=== PATIENT | female | born 1965 | race Caucasian/White ===

== ENCOUNTER 2018-08-29 13:56 | Observation (INO) | payer BC, OTHER ==
[2018-08-29] MEDS ORDERED: SODIUM CHLORIDE 0.9% 1,000 ML IV STA (15:06)
[2018-08-29] MEDS ORDERED: SODIUM CHLORIDE 0.9% 500 ML 500 ML IV STA (15:06)
--- NOTE | 2018-08-29 15:08 | ED ---
Female Urogenital HPI - General Source: patient, RN notes reviewed Mode of arrival: ambulatory Limitations: no limitations - History of Present Illness Last Menstrual Period: 08/09/18 <Eduardo Ramirez - Last Filed: 08/29/18 17:13> <Isaak Rome - Last Filed: 08/29/18 17:25> - General Chief complaint: Urogenital Stated complaint: Urogenital Time Seen by Provider: 08/29/18 14:33 - History of Present Illness Initial comments: 52-year-old female sent emergency Department chief complaint urinary frequency dysuria and flank pain. Patient was seen at [facility] for possible urinary tract infection which they told her that the urinalysis was negative and sent here for further evaluation. Patient was was treated for UTI 1 month ago. Patient states she recently started having symptoms again. Patient has no prior abdominal surgeries. Denies any known fever but states that she felt hot and cold. No nausea vomiting diarrhea constipation this time. Patient states that nothing makes the pain feel better or worse. Denies chest pain or shortness breath (Eduardo Ramirez) - Related Data Home Medications Medication Instructions Recorded Confirmed Naproxen Sodium [Aleve] 220 mg PO DAILY 09/08/15 09/08/15 Previous Rx's Medication Instructions Recorded Ibuprofen [Motrin] 600 mg PO Q6HR PRN #20 tab 09/08/15 Allergies Allergy/AdvReac Type Severity Reaction Status Date / Time No Known Allergies Allergy Verified 08/29/18 14:17 Review of Systems ROS Other: All systems not noted in ROS Statement are negative. <Eduardo Ramirez - Last Filed: 08/29/18 17:13> ROS Other: All systems not noted in ROS Statement are negative. <Isaak Rome - Last Filed: 08/29/18 17:25> ROS Statement: Those systems with pertinent positive or pertinent negative responses have been documented in the HPI. Past Medical History Past Medical History: No Reported History History of Any Multi-Drug Resistant Organisms: None Reported Past Surgical History: Orthopedic Surgery Past Psychological History: No Psychological Hx Reported Smoking Status: Never smoker Past Alcohol Use History: Rare Past Drug Use History: None Reported <Eduardo Ramirez - Last Filed: 08/29/18 17:13> General Exam Limitations: no limitations General appearance: alert, in no apparent distress Head exam: Present: atraumatic, normocephalic, normal inspection Respiratory exam: Present: normal lung sounds bilaterally. Absent: respiratory distress, wheezes, rales, rhonchi, stridor Cardiovascular Exam: Present: regular rate, normal rhythm, normal heart sounds. Absent: systolic murmur, diastolic murmur, rubs, gallop, clicks GI/Abdominal exam: Present: soft, tenderness (Mild left upper and suprapubic), normal bowel sounds. Absent: distended, guarding, rebound, rigid Back exam: Present: CVA tenderness (R), CVA tenderness (L) Neurological exam: Present: alert Skin exam: Present: warm, dry, intact, normal color. Absent: rash <Eduardo Ramirez - Last Filed: 08/29/18 17:13> Course Vital Signs 08/29/18 08/29/18 14:14 15:58 Temperature 98.5 F Pulse Rate 87 74 Respiratory 18 16 Rate Blood Pressure 116/88 118/52 O2 Sat by Pulse 88 L 100 Oximetry Medical Decision Making - Lab Data Result diagrams: 08/29/18 15:42 08/29/18 15:42 <Eduardo Ramirez - Last Filed: 08/29/18 17:13> - Lab Data Result diagrams: 08/29/18 15:42 08/29/18 15:42 <Isaak Rome - Last Filed: 08/29/18 17:25> - Medical Decision Making 52-year-old female presented emergency from for abdominal pain. CT shows diverticulitis with phlegmon possible early abscess. Patient does have a hemoglobin 8.9 which is slightly low but denies any bleeding. Patient also has evidence urinary tract infection. Patient will be admitted for IV antibiotics, surgical evaluation (Eduardo Ramirez) Case discussed with practitioner Eduardo. Chart and reports reviewed. Case was also discussed in detail with Dr. Godinez, who will admit covering for hospital call. He recommends continuing antibiotics and nothing by mouth. (Isaak Rome) - Lab Data Lab Results 08/29/18 08/29/18 08/29/18 Range/Units 15:42 15:42 15:42 WBC 8.2 (3.8-10.6) k/uL RBC 4.01 (3.80-5.40) m/uL Hgb 8.9 L (11.4-16.0) gm/dL Hct 29.3 L (34.0-46.0) % MCV 73.0 L (80.0-100.0) fL MCH 22.1 L (25.0-35.0) pg MCHC 30.3 L (31.0-37.0) g/dL RDW 15.1 (11.5-15.5) % Plt Count 349 (150-450) k/uL Neutrophils % 77 % Lymphocytes % 13 % Monocytes % 7 % Eosinophils % 2 % Basophils % 0 % Neutrophils # 6.3 (1.3-7.7) k/uL Lymphocytes # 1.1 (1.0-4.8) k/uL Monocytes # 0.5 (0-1.0) k/uL Eosinophils # 0.1 (0-0.7) k/uL Basophils # 0.0 (0-0.2) k/uL Hypochromasia Marked Microcytosis Slight Sodium 139 (137-145) mmol/L Potassium 4.1 (3.5-5.1) mmol/L Chloride 105 (98-107) mmol/L Carbon Dioxide 28 (22-30) mmol/L Anion Gap 6 mmol/L BUN 9 (7-17) mg/dL Creatinine 0.60 (0.52-1.04) mg/dL Est GFR (CKD-EPI)AfAm >90 (>60 ml/min/1.73 sqM) Est GFR (CKD-EPI)NonAf >90 (>60 ml/min/1.73 sqM) Glucose 102 H (74-99) mg/dL Calcium 8.9 (8.4-10.2) mg/dL Total Bilirubin 0.6 (0.2-1.3) mg/dL AST 17 (14-36) U/L ALT 20 (9-52) U/L Alkaline Phosphatase 79 (38-126) U/L Total Protein 6.9 (6.3-8.2) g/dL Albumin 3.8 (3.5-5.0) g/dL Amylase <30 L (30-110) U/L Lipase 38 (23-300) U/L Urine Color Yellow Urine Appearance Cloudy H (Clear) Urine pH 5.0 (5.0-8.0) Ur Specific [place] 1.024 (1.001-1.035) Urine Protein Trace H (Negative) Urine Glucose (UA) Negative (Negative) Urine Ketones 1+ H (Negative) Urine Blood Negative (Negative) Urine Nitrite Negative (Negative) Urine Bilirubin Negative (Negative) Urine Urobilinogen <2.0 (<2.0) mg/dL Ur Leukocyte Esterase Large H (Negative) Urine RBC 1 (0-5) /hpf Urine WBC 31 H (0-5) /hpf Ur Squamous Epith Cells 12 H (0-4) /hpf Amorphous Sediment Rare H (None) /hpf Hyaline Casts 3 H (0-2) /lpf Urine Mucus Few H (None) /hpf Disposition <Eduardo Ramirez - Last Filed: 08/29/18 17:13> Is patient prescribed a controlled substance at d/c from ED?: No <Isaak Rome - Last Filed: 08/29/18 17:25> Clinical Impression: Diverticulitis, Anemia, UTI (urinary tract infection) Disposition: ADMITTED IP TO THIS HOSP Condition: Fair Referrals: None,Stated [Primary Care Provider] - 1-2 days
[2018-08-29 16:20] LABS: Amorphous Sediment,Urine Rare /hpf; Appearance,Urine Cloudy (Clear); Bilirubin,Urine Negative (Negative); Blood,Urine Negative (Negative); Color,Urine Yellow; Glucose,Urine (UA) Negative (Negative); Hyaline Casts,Urine 3 /lpf (0-2); Ketones,Urine 1+ (Negative); Leukocyte Esterase,Urine Large (Negative); Mucus,Urine Few /hpf; Nitrite,Urine Negative (Negative); Protein,Urine Trace (Negative); RBC,Urine 1 /hpf (0-5); Specific Gravity,Urine 1.024 (1.001-1.035); Squamous Epithelial Cell,Urine 12 /hpf (0-4); Urobilinogen,Urine <2.0 mg/dL (<2.0)
[2018-08-29 16:21] LABS: ALT 20 U/L (9-52); AST 17 U/L (14-36); African American GFR (CKD) >90 (>60 ml/min/1.73 sqM); Albumin 3.8 g/dL (3.5-5.0); Alkaline Phosphatase 79 U/L (38-126); Amylase <30 U/L (30-110); Anion Gap 6 mmol/L; Blood Urea Nitrogen 9 mg/dL (7-17); Calcium 8.9 mg/dL (8.4-10.2); Carbon Dioxide 28 mmol/L (22-30); Chloride 105 mmol/L (98-107); Glucose 102 mg/dL (74-99); Potassium 4.1 mmol/L (3.5-5.1); Sodium 139 mmol/L (137-145); Total Bilirubin 0.6 mg/dL (0.2-1.3); Total Protein 6.9 g/dL (6.3-8.2)
[2018-08-29 16:26] LABS: Basophils % (A) 0 %; Eosinophils # (A) 0.1 k/uL (0-0.7); Eosinophils % (A) 2 %; HCT 29.3 % (34.0-46.0); HGB 8.9 gm/dL (11.4-16.0); Hypochromasia Marked; Lymphocytes # (A) 1.1 k/uL (1.0-4.8); Lymphocytes % (A) 13 %; MCH 22.1 pg (25.0-35.0); MCHC 30.3 g/dL (31.0-37.0); Mean Platelet Volume 6.7; Microcytosis Slight; Monocytes # (A) 0.5 k/uL (0-1.0); Monocytes % (A) 7 %; Neutrophils # (A) 6.3 k/uL (1.3-7.7); Neutrophils % (A) 77 %; Platelet Count 349 k/uL (150-450); RBC 4.01 m/uL (3.80-5.40); RDW 15.1 % (11.5-15.5); WBC 8.2 k/uL (3.8-10.6)
--- NOTE | 2018-08-29 16:51 | CT ---
EXAMINATION TYPE: CT abdomen pelvis w con DATE OF EXAM: 08/29/2018 COMPARISON: INDICATION: Dysuria and abdominal pain. DLP: 1737.3 mGycm, Automated exposure control for dose reduction was used. CONTRAST: 100ml mL of Isovue 300. Study performed without Oral Contrast TECHNIQUE: Axial images were obtained from above the diaphragm to the pubic rami in the axial plane a t 5 mm thick sections. Reconstructed images are reviewed on the computer in the coronal plane. FINDINGS: Limited CT sections are obtained the lung bases. The lung bases are clear. CT ABDOMEN: Liver: Normal Spleen: Normal Pancreas: Normal Adrenal glands: The adrenal glands are normal. Gallbladder: Gallstones are present. Kidneys: No masses are evident. No hydronephrosis is present. No cysts are present. Delayed images were obtained through the kidneys, which remain unremarkable. Aorta: Normal adjacent to the aorta below the renal arteries is a 1.8 cm hypodensity which has a simone lar density to the inferior vena cava. This could be a large lymph node. Vascular structures consider ed less likely. Left renal vein crosses posterior to the aorta. Inferior vena cava: Normal. CT PELVIS: There are inflammatory changes adjacent to the sigmoid colon. The sigmoid colon is diffusely thickene d. There is an area of bulging superiorly which contains some air compatible with acute diverticuliti s. This may be air within diverticulum or loculated within the mesentery at this location. No free ai r is evident within the abdomen. A well-formed abscess is not present at this time. This could be phl egmon formation. Study is performed without oral contrast causing some limitation on the evaluation o f bowel loops. Appendix: Not visualized. No inflammatory changes in the right lower quadrant are evident. Urinary bladder: Unremarkable as visualized. This is partially decompressed causing some limitation. Genitourinary structures: Uterus is normal. Very minimal free fluid may be within the pelvis which ca n be physiologic. The adnexal regions are unremarkable. Osseous structures: No suspicious lytic or sclerotic lesions. Sacroiliac joints have degenerative mendy nge. Facet degenerative change lumbar spine. IMPRESSIONS: 1. Acute diverticulitis sigmoid colon. There is an area of inflammatory change which contains locula rachel air. A well-formed abscess is not present at this time. Phlegmon is likely present. Follow-up is recommended. 2. Enlarged hypodense area adjacent to the mid abdominal aorta suspected to be an enlarged 1.8 cm lym ph node. Follow-up is recommended.
[2018-08-29] MEDS ORDERED: metroNIDAZOLE-NS PMX 500 MG in SALINE 1 100ML.BAG IVPB STA (16:56)
[2018-08-29] MEDS ORDERED: LEVOFLOXACIN 750MG-D5W PMX 750 MG in DEXTROSE/WATER 1 150ML.BAG IVPB STA (16:56)
[2018-08-29] MEDS ORDERED: ONDANSETRON 4 MG/2 ML VIAL IVP PRN (17:14)
[2018-08-29] MEDS ORDERED: HYDROcodone/APAP 5-325MG 1 EACH TAB PO PRN (17:14)
[2018-08-29] MEDS ORDERED: ACETAMINOPHEN TAB 325 MG TAB PO PRN (17:14)
[2018-08-29] MEDS ORDERED: MORPHINE SULFATE 4 MG/ML SYRINGE IV PRN (17:14)
[2018-08-29] MEDS ORDERED: NALOXONE 0.4 MG/ML 1 ML VIAL IV PRN (17:14)
[2018-08-29] MEDS: SODIUM CHLORIDE 0.9% 1,000 ML IV SCH (17:53)
[2018-08-30] MEDS: metroNIDAZOLE-NS PMX 500 MG in SALINE 1 100ML.BAG IVPB SCH ×3 (01:33→18:36)
[2018-08-30] MEDS: SODIUM CHLORIDE 0.9% 1,000 ML IV SCH ×3 (01:34→23:42)
[2018-08-30 01:47] VITALS: BMI 40.3
[2018-08-30] MEDS: PANTOPRAZOLE 40 MG/10 ML VIAL IV SCH (07:19)
[2018-08-30 08:19] LABS: Basophils % (A) 0 %; Eosinophils # (A) 0.1 k/uL (0-0.7); Eosinophils % (A) 2 %; HCT 27.7 % (34.0-46.0); HGB 8.3 gm/dL (11.4-16.0); Hypochromasia Marked; Lymphocytes # (A) 0.7 k/uL (1.0-4.8); Lymphocytes % (A) 13 %; MCH 22.6 pg (25.0-35.0); MCV 75.4 fL (80.0-100.0); Mean Platelet Volume 6.8; Microcytosis Slight; Monocytes # (A) 0.4 k/uL (0-1.0); Monocytes % (A) 7 %; Neutrophils # (A) 4.5 k/uL (1.3-7.7); Neutrophils % (A) 77 %; Platelet Count 294 k/uL (150-450); RBC 3.67 m/uL (3.80-5.40); RDW 14.8 % (11.5-15.5); WBC 5.9 k/uL (3.8-10.6)
--- NOTE | 2018-08-30 11:01 | P.GSHP ---
History of Present Illness H&P Date: 08/30/18 Chief Complaint: Left lower quadrant bowel pain This is a 52-year-old female who is admitted to the hospital with abdominal pain. She is worked up found have acute diverticulitis with phlegmon. Patient states his abdominal pain starting a few days ago. Past Medical History Past Medical History: No Reported History Additional Past Medical History / Comment(s): Skin cancer on neck History of Any Multi-Drug Resistant Organisms: None Reported Past Surgical History: Orthopedic Surgery Additional Past Surgical History / Comment(s): left knee surgery Past Anesthesia/Blood Transfusion Reactions: No Reported Reaction Past Psychological History: No Psychological Hx Reported Smoking Status: Never smoker Past Alcohol Use History: Rare Past Drug Use History: None Reported - Past Family History Mother Family Medical History: Cancer Medications and Allergies Home Medications Medication Instructions Recorded Confirmed Type No Known Home Medications 08/29/18 08/29/18 History Allergies Allergy/AdvReac Type Severity Reaction Status Date / Time gluten Allergy Nausea & Verified 08/29/18 18:18 Vomiting shellfish derived [Shellfish] Allergy Vomiting Verified 08/29/18 18:18 Surgical - Exam Vital Signs Temp Pulse Resp BP Pulse Ox 98.5 F 87 18 116/88 88 L 08/29/18 14:14 08/29/18 14:14 08/29/18 14:14 08/29/18 14:14 08/29/18 14:14 - General well developed, well nourished, no distress - Eyes PERRL - ENT normal pinna - Neck no masses - Respiratory normal expansion - Cardiovascular Rhythm: regular - Abdomen Mild left lower quadrant pain Abdomen: soft Results - Labs 08/30/18 07:30 08/29/18 15:42 Abnormal Lab Results - Last 24 Hours (Table) 08/29/18 08/29/18 08/29/18 Range/Units 15:42 15:42 15:42 RBC (3.80-5.40) m/uL Hgb 8.9 L (11.4-16.0) gm/dL Hct 29.3 L (34.0-46.0) % MCV 73.0 L (80.0-100.0) fL MCH 22.1 L (25.0-35.0) pg MCHC 30.3 L (31.0-37.0) g/dL Lymphocytes # (1.0-4.8) k/uL Glucose 102 H (74-99) mg/dL Amylase <30 L (30-110) U/L Urine Appearance Cloudy H (Clear) Urine Protein Trace H (Negative) Urine Ketones 1+ H (Negative) Ur Leukocyte Esterase Large H (Negative) Urine WBC 31 H (0-5) /hpf Ur Squamous Epith Cells 12 H (0-4) /hpf Amorphous Sediment Rare H (None) /hpf Hyaline Casts 3 H (0-2) /lpf Urine Mucus Few H (None) /hpf 08/30/18 Range/Units 07:30 RBC 3.67 L (3.80-5.40) m/uL Hgb 8.3 L (11.4-16.0) gm/dL Hct 27.7 L (34.0-46.0) % MCV 75.4 L (80.0-100.0) fL MCH 22.6 L (25.0-35.0) pg MCHC 30.0 L (31.0-37.0) g/dL Lymphocytes # 0.7 L (1.0-4.8) k/uL Glucose (74-99) mg/dL Amylase (30-110) U/L Urine Appearance (Clear) Urine Protein (Negative) Urine Ketones (Negative) Ur Leukocyte Esterase (Negative) Urine WBC (0-5) /hpf Ur Squamous Epith Cells (0-4) /hpf Amorphous Sediment (None) /hpf Hyaline Casts (0-2) /lpf Urine Mucus (None) /hpf Microbiology - Last 24 Hours (Table) 08/29/18 15:42 Urine Culture - Preliminary Urine,Voided Diabetes panel 08/29/18 Range/Units 15:42 Sodium 139 (137-145) mmol/L Potassium 4.1 (3.5-5.1) mmol/L Chloride 105 (98-107) mmol/L Carbon Dioxide 28 (22-30) mmol/L BUN 9 (7-17) mg/dL Creatinine 0.60 (0.52-1.04) mg/dL Glucose 102 H (74-99) mg/dL Calcium 8.9 (8.4-10.2) mg/dL AST 17 (14-36) U/L ALT 20 (9-52) U/L Alkaline Phosphatase 79 (38-126) U/L Total Protein 6.9 (6.3-8.2) g/dL Albumin 3.8 (3.5-5.0) g/dL Calcium panel 08/29/18 Range/Units 15:42 Calcium 8.9 (8.4-10.2) mg/dL Albumin 3.8 (3.5-5.0) g/dL Pituitary panel 08/29/18 Range/Units 15:42 Sodium 139 (137-145) mmol/L Potassium 4.1 (3.5-5.1) mmol/L Chloride 105 (98-107) mmol/L Carbon Dioxide 28 (22-30) mmol/L BUN 9 (7-17) mg/dL Creatinine 0.60 (0.52-1.04) mg/dL Glucose 102 H (74-99) mg/dL Calcium 8.9 (8.4-10.2) mg/dL Adrenal panel 08/29/18 Range/Units 15:42 Sodium 139 (137-145) mmol/L Potassium 4.1 (3.5-5.1) mmol/L Chloride 105 (98-107) mmol/L Carbon Dioxide 28 (22-30) mmol/L BUN 9 (7-17) mg/dL Creatinine 0.60 (0.52-1.04) mg/dL Glucose 102 H (74-99) mg/dL Calcium 8.9 (8.4-10.2) mg/dL Total Bilirubin 0.6 (0.2-1.3) mg/dL AST 17 (14-36) U/L ALT 20 (9-52) U/L Alkaline Phosphatase 79 (38-126) U/L Total Protein 6.9 (6.3-8.2) g/dL Albumin 3.8 (3.5-5.0) g/dL Assessment and Plan Assessment: Acute diverticula is. Patient will continue IV antibiotics and have clear liquid diet.
[2018-08-30] MEDS: LEVOFLOXACIN 750MG-D5W PMX 750 MG in DEXTROSE/WATER 1 150ML.BAG IVPB SCH (17:15)
[2018-08-30 21:26] LABS: Basophils % (A) 1 %; Eosinophils # (A) 0.2 k/uL (0-0.7); Eosinophils % (A) 3 %; HCT 27.1 % (34.0-46.0); HGB 8.3 gm/dL (11.4-16.0); Hypochromasia Marked; Lymphocytes % (A) 17 %; MCHC 30.7 g/dL (31.0-37.0); MCV 74.7 fL (80.0-100.0); Mean Platelet Volume 6.5; Microcytosis Slight; Monocytes # (A) 0.5 k/uL (0-1.0); Monocytes % (A) 9 %; Neutrophils # (A) 3.8 k/uL (1.3-7.7); Neutrophils % (A) 68 %; Platelet Count 279 k/uL (150-450); RBC 3.62 m/uL (3.80-5.40); RDW 14.7 % (11.5-15.5); WBC 5.5 k/uL (3.8-10.6)
--- NOTE | 2018-08-31 00:47 | CONS ---
CONSULTATION SUBJECTIVE: 52-year-old white female for consultation per family doctor. Discussed the case. She is in with diverticulitis. Otherwise, she is on no home medications at home. She is found to be anemic also. May be needs some endoscopies as an outpatient. Other risk factor modification was discussed with her. She is feeling better with IV antibiotics. Medications include Weidman for pain, Levaquin, Flagyl, IV morphine for pain. Protonix for GERD. Home medications negative. REVIEW OF SYSTEMS: Fourteen point review of systems negative except for mentioned in HPI. PHYSICAL EXAMINATION: VITAL SIGNS: Stable. Afebrile. CARDIOVASCULAR: S1, S2. LUNGS: Clear. GI soft. Hematology: Negative Homans. Psych: Fair mood and affect. ENDOCRINE: BMI is over 41. ASSESSMENT: 1. Acute diverticulitis. 2. Obesity. 3. Anemia of unclear etiology. Iron, TIBC will be ordered. Check thyroid. Hemoglobin A1c. MMODL / IJN: [id number] /
[2018-08-31] MEDS: metroNIDAZOLE-NS PMX 500 MG in SALINE 1 100ML.BAG IVPB SCH ×3 (02:44→17:58)
[2018-08-31] MEDS: SODIUM CHLORIDE 0.9% 1,000 ML IV SCH ×2 (09:51→19:43)
[2018-08-31] MEDS: PANTOPRAZOLE 40 MG/10 ML VIAL IV SCH (09:53)
[2018-08-31 12:14] LABS: Hemoglobin A1C 5.8 % (4.0-6.0)
[2018-08-31 12:44] LABS: Iron Saturation 3.47 (12.00-45.00)
--- NOTE | 2018-08-31 13:04 | P.PN ---
Subjective Progress Note Date: 08/31/18 CHIEF COMPLAINT: abdominal pain HISTORY OF PRESENT ILLNESS: Patient examined at the bedside. Patient states she is feeling better today. Minimal abdominal pain. Reports 04/15. Tolerating clear liquid diet. PHYSICAL EXAM: VITAL SIGNS: Reviewed. GENERAL: Well-developed in no acute distress. HEENT: No sclera icterus. Extraocular movements grossly intact. Moist buccal mucosa. Head is atraumatic, normocephalic. ABDOMEN: Soft. Nondistended. Nontender. NEUROLOGIC: Alert and oriented. Cranial nerves II through XII grossly intact. ASSESSMENT: 1. Acute diverticulitis with phlegmon PLAN: Continue antibiotics Advance diet to soft diet Anticipate discharge tomorrow Nurse practitioner note has been reviewed by physician. Signing provider agrees with the documented findings, assessment, and plan of care. Objective - Vital Signs Vital signs: Vital Signs Temp 98.2 F 08/31/18 12:17 Pulse 78 08/31/18 12:17 Resp 16 08/31/18 12:17 BP 99/51 08/31/18 12:17 Pulse Ox 98 08/31/18 12:17 Intake & Output 08/30/18 08/31/18 08/31/18 18:59 06:59 18:59 Intake Total 830 500 Output Total 275 1050 Balance 555 -550 Intake: Oral 830 500 Output: Urine 275 1050 Other: Voiding Method Toilet Toilet # Voids 1 1 1 - Labs CBC & Chem 7: 08/30/18 20:53 08/29/18 15:42 Labs: Abnormal Lab Results - Last 24 Hours (Table) 08/30/18 08/30/18 08/30/18 Range/Units 20:53 21:00 21:00 RBC 3.62 L (3.80-5.40) m/uL Hgb 8.3 L (11.4-16.0) gm/dL Hct 27.1 L (34.0-46.0) % MCV 74.7 L (80.0-100.0) fL MCH 23.0 L (25.0-35.0) pg MCHC 30.7 L (31.0-37.0) g/dL Iron 12 L (50-170) ug/dL Iron Saturation 3.47 L (12.00-45.00) HDL Cholesterol 33 L (40-60) mg/dL Microbiology - Last 24 Hours (Table) 08/29/18 17:44 Blood Culture - Preliminary Blood No Growth after 24 hours 08/29/18 15:42 Urine Culture - Final Urine,Voided
--- NOTE | 2018-08-31 16:35 | P.PN ---
Subjective Progress Note Date: 08/31/18 This is a 52-year-old female admitted with acute diverticulitis with phlegmon. Less pain today. Tolerating clear liquids with no nausea or vomiting. No diarrhea. Diet advanced to soft foods as per surgery. Denies chest pain, palpitations, shortness of breath. Afebrile. Urine culture negative, prelimi nary blood culture negative. Hemoglobin A1c 5.8. Hemoglobin repeated last night, remained at 8.3, iron and iron sat low. HDL low.VSS, maintaining O2 sats in the high 90s on room air. Objective - Vital Signs Vital signs: Vital Signs Temp 98.2 F 08/31/18 12:17 Pulse 78 08/31/18 12:17 Resp 16 08/31/18 12:17 BP 99/51 08/31/18 12:17 Pulse Ox 98 08/31/18 12:17 Intake & Output 08/30/18 08/31/18 08/31/18 18:59 06:59 18:59 Intake Total 830 500 Output Total 275 1050 Balance 555 -550 Intake: Oral 830 500 Output: Urine 275 1050 Other: Voiding Method Toilet Toilet # Voids 1 1 3 - Exam PHYSICAL EXAM: VITAL SIGNS: As above GENERAL: Sitting up in bed, no acute distress HEENT: Conjunctivae normal. eyes normal. Oral mucosa moist NECK: No JVD. No thyroid enlargement. No LNs CARDIOVASCULAR: S1, S2 regular.. No murmur, gallop or rub RESPIRATION: Breath sounds diminished in the bases. No rhonchi or crackles. No wheezing ABDOMEN: Soft, nondistended, nontender .no guarding, masses palpable. Bowel sounds heard. LEGS: No edema. no swelling PSYCHIATRY: Alert and oriented -3, mood and affect normal. NERVOUS SYSTEM: Cranial N 2-12 grossly normal. No focal deficits. No sensory deficit. Skin: no lesions no rash - Labs CBC & Chem 7: 08/30/18 20:53 08/29/18 15:42 Labs: Abnormal Lab Results - Last 24 Hours (Table) 08/30/18 08/30/18 08/30/18 Range/Units 20:53 21:00 21:00 RBC 3.62 L (3.80-5.40) m/uL Hgb 8.3 L (11.4-16.0) gm/dL Hct 27.1 L (34.0-46.0) % MCV 74.7 L (80.0-100.0) fL MCH 23.0 L (25.0-35.0) pg MCHC 30.7 L (31.0-37.0) g/dL Iron 12 L (50-170) ug/dL Iron Saturation 3.47 L (12.00-45.00) HDL Cholesterol 33 L (40-60) mg/dL Microbiology - Last 24 Hours (Table) 08/29/18 17:44 Blood Culture - Preliminary Blood No Growth after 24 hours 08/29/18 15:42 Urine Culture - Final Urine,Voided Assessment and Plan Assessment: -Acute diverticulitis with phlegmon -Obesity, BMI 40.3 -Anemia,possibly iron deficient, though TIBC wa within normal limits, Iron & iron sat.low -HDL, low Plan: Continue on current medication regime ,monitoring and symptomatic treatment. Maintain IV antibiotics. Diet advanced as per surgery. Increase ambulation as tolerated. close monitoring of hemoglobin, electrolytes with repeat labs ordered in am. Discharge planning in progress for tomorrow as per surgery. The impression and plan of care has been dictated as directed. : I performed a history and examination of this patient, discussed the same with the dictator. I agree with the dictator's note ,documented as a scribe. Any additional findings or plans will be noted.
[2018-08-31] MEDS: LEVOFLOXACIN 750MG-D5W PMX 750 MG in DEXTROSE/WATER 1 150ML.BAG IVPB SCH (19:05)
[2018-09-01] MEDS: metroNIDAZOLE-NS PMX 500 MG in SALINE 1 100ML.BAG IVPB SCH ×2 (01:36→09:59)
[2018-09-01] MEDS: SODIUM CHLORIDE 0.9% 1,000 ML IV SCH (05:48)
[2018-09-01 09:45] VITALS: BP 119/81; PULSE 83; RESP 16; TEMP 98.1
[2018-09-01 09:53] LABS: Basophils % (A) 0 %; Eosinophils # (A) 0.1 k/uL (0-0.7); Eosinophils % (A) 2 %; HCT 28.7 % (34.0-46.0); HGB 8.6 gm/dL (11.4-16.0); Hypochromasia Marked; Lymphocytes # (A) 0.7 k/uL (1.0-4.8); Lymphocytes % (A) 14 %; MCH 22.3 pg (25.0-35.0); MCHC 29.9 g/dL (31.0-37.0); MCV 74.6 fL (80.0-100.0); Mean Platelet Volume 7.3; Microcytosis Slight; Monocytes # (A) 0.3 k/uL (0-1.0); Monocytes % (A) 5 %; Neutrophils # (A) 3.5 k/uL (1.3-7.7); Neutrophils % (A) 76 %; Platelet Count 327 k/uL (150-450); RBC 3.85 m/uL (3.80-5.40); RDW 14.6 % (11.5-15.5); WBC 4.6 k/uL (3.8-10.6)
[2018-09-01 09:59] LABS: African American GFR (CKD) >90 (>60 ml/min/1.73 sqM); Anion Gap 7 mmol/L; Blood Urea Nitrogen 5 mg/dL (7-17); Calcium 8.4 mg/dL (8.4-10.2); Carbon Dioxide 26 mmol/L (22-30); Chloride 107 mmol/L (98-107); Glucose 187 mg/dL (74-99); Potassium 3.8 mmol/L (3.5-5.1); Sodium 140 mmol/L (137-145)
[2018-09-01] MEDS: PANTOPRAZOLE 40 MG/10 ML VIAL IV SCH (09:59)
--- NOTE | 2018-09-01 11:26 | P.DS ---
Providers Date of admission: 08/31/18 14:03 Expected date of discharge: 09/01/18 Attending physician: Chaim Henriquez Consults: 08/30/18 11:01 Consult Physician Routine Consulting Provider: Richard Hoyt Consult Reason/Comments: Patient needs family doctor, medical management Do you want consulting provider notified?: Yes Primary care physician: Stated None Hospital Course: 52-year-old female who presented to the ER with abdominal pain. Patient was found to have acute diverticulitis with phlegmon. She was placed on antibiotics. White count has normalized. Vitals stable. Diet slowly advanced as tolerated. Patient is stable for discharge home today. Please see EMR for further hospital course details. Patient to follow up with Dr. Henriquez in 1 week. Patient does not wish to see Dr. Hoyt outpatient for her PCP. She states she will continue to look around. Encouraged patient to establish with a PCP as soon as possible. Patient agreeable. Discharge Diagnosis: 1. Acute diverticulitis with phlegmon Nurse practitioner note has been reviewed by physician. Signing provider agrees with the documented findings, assessment, and plan of care. Patient Condition at Discharge: Stable Plan - Discharge Summary Discharge Rx Participant: No New Discharge Prescriptions: New metroNIDAZOLE [Flagyl] 500 mg PO TID #30 tab Levofloxacin [Levaquin] 750 mg PO DAILY #10 tab Discharge Medication List Levofloxacin [Levaquin] 750 mg PO DAILY #10 tab 08/31/18 [Rx] metroNIDAZOLE [Flagyl] 500 mg PO TID #30 tab 08/31/18 [Rx] Follow up Appointment(s)/Referral(s): None,Stated [Primary Care Provider] - 1-2 days (Please find a primary care physician) Chaim Henriquez MD [STAFF PHYSICIAN] - 1 Week (Please call when home and make your follow-up appointment) Patient Instructions/Handouts: Diverticulitis (DC) Activity/Diet/Wound Care/Special Instructions: soft, bland diet Tylenol as needed for pain May return to work 09-03-18
--- NOTE | 2018-09-03 11:20 | P.PN ---
Subjective Progress Note Date: 09/01/18 This is a 52-year-old female admitted with acute diverticulitis with phlegmon. Less pain today. Tolerating clear liquids with no nausea or vomiting. No diarrhea. Diet advanced to soft foods as per surgery. Denies chest pain, palpitations, shortness of breath. Afebrile. Urine culture negative, prelimi nary blood culture negative. Hemoglobin A1c 5.8. Hemoglobin repeated last night, remained at 8.3, iron and iron sat low. HDL low.VSS, maintaining O2 sats in the high 90s on room air. 09/01/18 maintained on IV antibiotics , tolerated diet advancement with no nausea vomiting or diarrhea . Denies pain . Afebrile, normal WBC . Hemoglobin 8.6, iron levels low -iron 12, iron saturation 3.47,. HDL low 33 .Dietary consulted- patient is a vegetarian plus gluten-free secondary to autoimmune disease .VSS. Denies chest pain, palpitations or increasing shortness of breath. Significant clinical improvement. Objective - Vital Signs Vital signs: Vital Signs Temp 98.1 F 09/01/18 08:39 Pulse 83 09/01/18 08:39 Resp 16 09/01/18 08:39 BP 119/81 09/01/18 08:39 Pulse Ox 97 09/01/18 08:39 Intake & Output 08/31/18 09/01/18 09/01/18 18:59 06:59 18:59 Intake Total 1750 Balance 1750 Intake: Intake, IV Titration 1150 Amount Levofloxacin 750Mg-D5w 150 Pmx 750 mg In Dextrose/ Water 1 150ml.bag @ 100 mls/hr IVPB Q24H [facility] Rx#: [id number] Sodium Chloride 0.9% 1, 1000 000 ml @ 100 mls/hr IV . Q10H [facility] Rx#:[id number] Oral 600 Other: Voiding Method Toilet # Voids 3 2 - Labs CBC & Chem 7: 09/01/18 09:28 09/01/18 09:28 Labs: Abnormal Lab Results - Last 24 Hours (Table) 09/01/18 09/01/18 Range/Units 09:28 09:28 Hgb 8.6 L (11.4-16.0) gm/dL Hct 28.7 L (34.0-46.0) % MCV 74.6 L (80.0-100.0) fL MCH 22.3 L (25.0-35.0) pg MCHC 29.9 L (31.0-37.0) g/dL Lymphocytes # 0.7 L (1.0-4.8) k/uL BUN 5 L (7-17) mg/dL Glucose 187 H (74-99) mg/dL Microbiology - Last 24 Hours (Table) 08/29/18 17:44 Blood Culture - Preliminary Blood No Growth after 48 hours Assessment and Plan Assessment: -Acute diverticulitis with phlegmon -Obesity, BMI 40.3 -Anemia, iron deficient, though TIBC wa within normal limits, Iron & iron sat.low, in a patient who is a vegetarian and gluten-free. -HDL, low Plan: Continue on current medication regime ,monitoring and symptomatic treatment. Dietitian to meet with patient. Recommend iron supplements. Aggressive pulmonary toileting. Increase ambulation as tolerated. Discharge planning in progress for today as per surgery. Follow with PCP in one week. Further recommendations to follow. Thank you Dr. Henriquez for allowing us to participate in the care of this pleasant lady. The impression and plan of care has been dictated as directed. .: I performed a history and examination of this patient, discussed the same with the dictator. I agree with the dictator's note ,documented as a scribe. Any additional findings or plans will be noted.
== END 2018-09-01 12:00 | disposition home or self-care (01) ==
LOC: EC 13:56 → 4SSUR 17:14 → 6PED 08-30 13:42 → INTOOBSV 08-31 14:03 → OBSVTOIN 08-31 14:03 → UNDODISIN 09-01 12:00
PROVIDERS: ADMIT Surgery; ATTEND Surgery
DX: K57.20 Diverticulitis of large intestine with perforation and abscess without bleeding (principal); D50.9 Iron deficiency anemia, unspecified; K21.9 Gastro-esophageal reflux disease without esophagitis; N39.0 Urinary tract infection, site not specified; D89.9 Disorder involving the immune mechanism, unspecified; E66.9 Obesity, unspecified; Z68.41 Body mass index [BMI] 40.0-44.9, adult; Z79.1 Long term (current) use of non-steroidal anti-inflammatories (NSAID); Z91.013 Allergy to seafood; Z91.048 Other nonmedicinal substance allergy status; Z87.440 Personal history of urinary (tract) infections; Z98.890 Other specified postprocedural states; Z85.828 Personal history of other malignant neoplasm of skin; Z80.9 Family history of malignant neoplasm, unspecified
CPT/HCPCS: 96361 ×3; 96365 ×2; 96366 ×4; 96375; 96376 ×2; 96367; 99284; 36415; 80061; 80053; 80048; 84443; 82150; 83540; 83550; 83605; 83690; 85025 ×3; 81001; 87040; 87086; 83036; 74177; G0378 ×4; J1956 ×3; C9113 ×3; Q9967; 99285

== ENCOUNTER → 2018-11-18 | Outpatient (CLI) | payer OTHER ==
[2018-11-18 15:49] LABS: HCT 27.3 % (34.0-46.0); HGB 8.1 gm/dL (11.4-16.0); Hypochromasia Marked; MCH 20.8 pg (25.0-35.0); MCHC 29.7 g/dL (31.0-37.0); MCV 70.2 fL (80.0-100.0); Mean Platelet Volume 6.5; Microcytosis Moderate; Platelet Count 489 k/uL (150-450); Poikilocytosis Slight; RBC 3.89 m/uL (3.80-5.40); RDW 15.3 % (11.5-15.5)
[2018-11-18 18:55] LABS: African American GFR (CKD) 115.5 (60.0-200.0); Albumin 4.1 g/dL (3.80-4.90); Albumin/Globulin Ratio 1.78 (1.60-3.17); Anion Gap 7.1 mmol/L (4.00-12.00); BUN/Creat Ratio 15.71 Ratio (12.00-20.00); Calcium 8.9 mg/dL (8.7-10.3); Carbon Dioxide 26.9 mmol/L (21.6-31.8); Globulin 2.3 g/dL (1.6-3.3); Potassium 4.6 mmol/L (3.5-5.5); Total Bilirubin 0.2 mg/dL (0.2-1.2); Total Protein 6.4 g/dL (6.2-8.2)
== END | disposition home or self-care (01) ==
LOC: LABWHC1 14:57
PROVIDERS: ATTEND Surgery
DX: K57.32 Diverticulitis of large intestine without perforation or abscess without bleeding (principal)
CPT/HCPCS: 36415; 80053; 85027

== ENCOUNTER → 2018-11-18 | Outpatient (CLI) | payer OTHER ==
--- NOTE | 2018-11-18 17:30 | CT ---
EXAMINATION TYPE: CT abdomen pelvis w con DATE OF EXAM: 11/18/2018 COMPARISON: 08/29/2018 HISTORY: Lower abdominal and back pain. CT DLP: 1762.7 mGycm Automated exposure control for dose reduction was used. TECHNIQUE: Helical acquisition of images was performed from the lung bases through the pelvis. CONTRAST: Performed with Oral Contrast and with IV Contrast, patient injected with 100ml mL of Isovue 300. FINDINGS: Lung bases are clear. There is no pleural effusion. There is no pericardial effusion. Stomach appears normal. Liver spleen pancreas appear normal. Bile ducts are not dilated. There are multiple large gallstones. There is no gallbladder wall thickening. There is no adrenal mass. Kidneys show satisfactory contrast opacification. There is no hydronephrosi s. There are enlarged left side para-aortic lymph nodes that measure 2.5 cm. There is 2 cm low-densit y lymph node anterior to the left common iliac artery. Ureters are not dilated. Bladder distends smoothly. There is no inguinal hernia. There is no free flu id in the pelvis. There is segment of sigmoid colon with significant wall thickening and mild surroun ding fat stranding. There is no ascites. There is no free air. There is no sign of a bowel obstruction. There is no evide nce of thickened appendix. There is small umbilical hernia that contains fat. Lumbar spine is intact. I see no bony destructive process. Bony pelvis is intact. Uterus appears intact. IMPRESSION: THERE IS LONG SEGMENT OF SIGMOID COLON WALL THICKENING WITH MILD SURROUNDING INFLAMMATORY CHANGES. RE TROPERITONEAL LYMPHADENOPATHY. Adenopathy increased slightly compared to old CT scan. Sigmoid colon w all thickening appears increased slightly compared to old exam. Follow-up recommended. I would consid er both inflammatory process of colitis or diverticulitis as well as the neoplastic process. No absce ss. Multiple gallstones.
== END | disposition home or self-care (01) ==
LOC: RADCTMAIN 15:22
PROVIDERS: ATTEND Surgery
DX: K80.20 Calculus of gallbladder without cholecystitis without obstruction (principal); K63.89 Other specified diseases of intestine; R59.9 Enlarged lymph nodes, unspecified
CPT/HCPCS: 74177; Q9967